=== PATIENT | female | born 1965 ===

== ENCOUNTER → 2019-07-16 | Outpatient (CLI) | payer BC ==
[2019-07-18 15:10] LABS: HPV 16 Negative (Negative); HPV 18 Negative (Negative); HPV OTHER HR TYPES Negative (Negative)
== END ==
LOC: LAB UCHC 15:22 → LAB SHORT 15:22
PROVIDERS: Registered Nurse Community Health
DX: Z12.4 Encounter for screening for malignant neoplasm of cervix (principal)
CPT/HCPCS: 87624; G0123